=== PATIENT | male | born 1965 | race Caucasian/White ===

== ENCOUNTER 2017-03-18 21:07 | Emergency (ER) | payer BC ==
[2017-03-18 21:18] VITALS: BP 127/76; PULSE 85; TEMP 98.2; BMI 22.9
--- NOTE | 2017-03-18 21:58 | PDOC ---
History of Present Illness - General Chief Complaint: Redness To Affected Area Stated Complaint: RIGHT HAND INJURY Time Seen by Provider: 03/18/17 21:33 - History of Present Illness Initial Comments: 03/18/17 21:54 CHIEF COMPLAINT: skin issue HISTORY OF PRESENT ILLNESS: 51 yo M with no PMH presents to fast track with concerns regarding skin on back of R hand. 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 SURGICAL HISTORY: Denies ALLERGIES: No known drug allergies REVIEW OF SYSTEMS General/Constitutional: Denies fever or chills. Denies weakness, weight change. HEENT: Denies change in vision. Denies ear pain or discharge. Denies sore throat. Cardiovascular: Denies chest pain or shortness of breath. Respiratory: Denies cough, wheezing, or hemoptysis. Gastrointestinal: Denies nausea, vomiting, diarrhea or constipation. Denies rectal bleeding. Genitourinary: Denies dysuria, frequency, or change in urination. Musculoskeletal: Denies joint or muscle swelling or pain. Denies neck or back pain. Skin: "I think I took off some skin on the back of my hand with a Brillo pad." Neurologic: Denies headache, vertigo, loss of consciousness, or loss of sensation. PHYSICAL EXAM General Appearance: Well-appearing, appropriately dressed. No apparent distress , no intoxication. HEENT: EOMI, PERRLA, normal ENT inspection, normal voice, TMs normal, pharynx normal. No conjunctival pallor. No photophobia, scleral icterus. Neck: Supple. Trachea midline. No tenderness, rigidity, carotid bruit, stridor , lymphadenopathy, or thyromegaly. Respiratory/Chest: Lungs CTAB. No shortness of breath, chest tenderness, respiratory distress, accessory muscle use. No crackles, rales, rhonchi, stridor , wheezing, dullness Cardiovascular: RRR. S1, S2. No JVD, murmur, bradycardia, tachycardia. Vascular Pulses: Dorsalis-Pedis (R): 2+, Dorsalis-Pedis (L): 2+ Gastrointestinal/Abdominal: Normal bowel sounds. Abdomen soft, non-distended. No tenderness or rebound tenderness. No organomegaly, pulsatile mass, guarding , hernia, hepatomegaly, splenomegaly. Lymphatic: No adenopathy, tenderness. Musculoskeletal/Extremities: Normal inspection. FROM of all extremities, normal capillary refill. Pelvis Stable. No CVA tenderness. No tenderness to extremities, pedal edema, swelling, erythema or deformity. Integumentary: Very superificial abrasion to dorsal aspect of R hand, no active bleeding. Appropriate color, dry, warm. No cyanosis, erythema, jaundice or rash Neurologic: outdoor fitness trainer II-XII intact. Fully oriented, alert. Appropriate mood/affect. Motor strength 5/5. No appreciable EOM palsy, facial droop or sensory deficit. Past History - Past Medical History Allergies/Adverse Reactions: Allergies Allergy/AdvReac Type Severity Reaction Status Date / Time No Known Allergies Allergy Verified 12/30/12 15:25 Home Medications: Ambulatory Orders Finasteride [Propecia] 1 mg PO DAILY 12/30/12 - Suicide/Smoking/Psychosocial Hx Smoking Status: No Smoking History: Never smoked Number of Cigarettes Smoked Daily: 0 *Physical Exam - Vital Signs Last Vital Signs Temp Pulse Resp BP Pulse Ox 98.2 F 85 18 127/76 98 03/18/17 21:16 03/18/17 21:16 03/18/17 21:16 03/18/17 21:16 03/18/17 21:16 Medical Decision Making - Medical Decision Making 03/18/17 21:57 51 yo M with no PMH presents to fast track with concerns regarding skin on back of R hand. Area irrigated with normal saline, covered with xeroform dressing and tegaderm. *DC/Admit/Observation/Transfer Diagnosis at time of Disposition: Abrasion hand - Discharge Dispostion Disposition: HOME Condition at time of disposition: Stable Admit: No - Patient Instructions Printed Discharge Instructions: DI for Abrasion
== END 2017-03-18 22:00 | disposition home or self-care (01) ==
LOC: JERFT 21:07
DX: S60.511A Abrasion of right hand, initial encounter (principal); Y93.89 Activity, other specified; Y92.89 Other specified places as the place of occurrence of the external cause; Y99.8 Other external cause status; W45.8XXA Other foreign body or object entering through skin, initial encounter
CPT/HCPCS: 99281-25